=== PATIENT | male | born 1990 | race Caucasian/White ===

== ENCOUNTER → 2021-01-29 16:31 | Outpatient (BNVA) | payer BC, SELFPAY | PROVIDERS: Visit Provider Internal Medicine Gastroenterology ==

== ENCOUNTER 2021-03-13 11:08 | Outpatient (REF) | payer BC, SELFPAY | END 2021-03-13 11:09 | disposition home or self-care (01) | LOC: HO.MDS 11:08 | PROVIDERS: PCP Internal Medicine; Visit Provider Internal Medicine Gastroenterology | DX: K50.90 Crohn's disease, unspecified, without complications (principal) | CPT/HCPCS: 96365; J3380 ==

== ENCOUNTER 2021-03-27 11:29 | Outpatient (REF) | payer BC, SELFPAY | END 2021-03-27 11:30 | disposition home or self-care (01) | LOC: HO.MDS 11:29 | PROVIDERS: PCP Internal Medicine; Visit Provider Internal Medicine Gastroenterology | DX: K50.90 Crohn's disease, unspecified, without complications (principal) | CPT/HCPCS: 96365; J3380 ==

== ENCOUNTER 2021-04-30 10:11 | Outpatient (REF) | payer BC, SELFPAY | END 2021-04-30 10:12 | disposition home or self-care (01) | LOC: HO.MDS 10:11 | PROVIDERS: PCP Internal Medicine; Visit Provider Internal Medicine Gastroenterology | DX: K50.90 Crohn's disease, unspecified, without complications (principal) | CPT/HCPCS: 96365; J3380 ==

== ENCOUNTER 2021-11-06 12:15 | Outpatient (REF) | payer BC, SELFPAY | END 2021-11-06 12:16 | disposition home or self-care (01) | LOC: HO.MDS 12:15 | PROVIDERS: Visit Provider Dentist Pediatric Dentistry | DX: K50.90 Crohn's disease, unspecified, without complications (principal) | CPT/HCPCS: 96413; 96415; J1200; Q5104 ==

== ENCOUNTER 2021-11-19 09:06 | Outpatient (REF) | payer BC, SELFPAY | END 2021-11-19 09:07 | disposition home or self-care (01) | LOC: HO.MDS 09:06 | PROVIDERS: Visit Provider Internal Medicine Gastroenterology | DX: K50.90 Crohn's disease, unspecified, without complications (principal) | CPT/HCPCS: 96413; 96415; J1200; Q5104 ==

== ENCOUNTER 2021-12-31 10:35 | Outpatient (REF) | payer BC, SELFPAY | END 2021-12-31 10:36 | disposition home or self-care (01) | LOC: HO.MDS 10:35 | PROVIDERS: Visit Provider Internal Medicine Gastroenterology | DX: K50.90 Crohn's disease, unspecified, without complications (principal) | CPT/HCPCS: J1745; Q5104 ==

== ENCOUNTER 2022-02-25 10:49 | Outpatient (REF) | payer BC, SELFPAY ==
[2022-02-25 11:52] LABS: MANUAL DIFF FLAG NO
[2022-02-25 11:55] LABS: Basophils Percent Auto 0.4 % (0-2); Eosinophils Absolute Auto 0.1 X10*3/uL (0.0-0.4); Eosinophils Percent Auto 1.2 % (0-4); Hematocrit 45.2 % (42.0-52.0); Imm Gran Abs Auto 0.01 X10*3/uL (0.00-0.03); Imm Gran Pct Auto 0.1 % (0.0-0.4); Lymphocytes Absolute Auto 3.4 X10*3/uL (1.2-4.9); Lymphocytes Percent Auto 44.4 % (20-40); Mean Corpuscular HGB Conc 33.2 g/dl (31.0-36.0); Mean Corpuscular Hemoglobin 29.7 pg (27.0-33.0); Mean Corpuscular Volume 89.5 fL (80.0-98.0); Monocytes Absolute Auto 0.7 X10*3/uL (0.1-1.2); Neutrophils Absolute Auto 3.4 x10*3/uL (2.0-8.3); Neutrophils Percent Auto 44.9 % (45-73); Platelet Count 260 X10*3/uL (160-400); Red Blood Count 5.05 X10*6/uL (4.60-5.80); Red Cell Distribution Width 14.5 % (11.0-16.0); White Blood Count 7.6 X10*3/uL (4.8-10.8)
[2022-02-25 12:08] LABS: C Reactive Protein 0.47 mg/dL (< or = 0.50)
[2022-02-25 12:11] LABS: Alanine Aminotransferase 61 U/L (0-40); Albumin Level 4.1 g/dL (3.5-5.0); Alkaline Phosphatase 49 U/L (39-117); Anion Gap 12 (12-20); Aspartate Amino Transferase 79 U/L (5-37); Bilirubin Total 0.6 mg/dL (0.0-1.0); Blood Urea Nitrogen 11 mg/dL (9-16); Calcium 9.8 mg/dL (8.4-10.2); Carbon Dioxide 27 mmol/L (22-29); Chloride 104 mmol/L (96-108); Estimated Glomerular Filt Rate > 60; Glucose Random 99 mg/dL (60-115); Potassium 4.4 mmol/L (3.3-5.1); Sodium 139 mmol/L (135-145); Total Protein 7.6 g/dL (6.5-8.0)
[2022-02-25 12:31] LABS: Ferritin 35 ng/mL (20-250)
[2022-02-25 12:33] LABS: Erythrocyte Sedimentation Rate 2 MM/HR (0-15)
== END 2022-02-25 10:50 | disposition home or self-care (01) ==
LOC: HO.MDS 10:49
PROVIDERS: Visit Provider Internal Medicine Gastroenterology
DX: K50.90 Crohn's disease, unspecified, without complications (principal)
CPT/HCPCS: 36415; 80053; 80230; 82542; 82728; 85025; 85652; 86140; 96413; 96415; Q5104

== ENCOUNTER → 2023-05-30 13:07 | Outpatient (BNVA) | payer BC, SELFPAY | PROVIDERS: PCP Internal Medicine; Visit Provider Internal Medicine Gastroenterology ==

== ENCOUNTER 2025-08-26 14:48 | Outpatient (REF) | payer BC, SELFPAY ==
[2025-08-26 16:48] LABS: MANUAL DIFF FLAG NO
[2025-08-26 16:56] LABS: Hematocrit 44.5 % (42.0-52.0); Hemoglobin 15.6 g/dl (14.0-18.0); Imm Gran Abs Auto 0.02 X10*3/uL (0.00-0.03); Imm Gran Pct Auto 0.3 % (0.0-0.4); Lymphocytes Absolute Auto 3.5 X10*3/uL (1.2-4.9); Mean Corpuscular HGB Conc 35.1 g/dl (31.0-36.0); Mean Corpuscular Hemoglobin 32.2 pg (27.0-33.0); Mean Corpuscular Volume 91.8 fL (80.0-98.0); NRBC Abs Auto 0.000 X10*3/uL (0.0-0.012); NRBC Pct Auto 0.0 /100WBC (0.0-0.2); Platelet Count 257 X10*3/uL (160-400); Red Blood Count 4.85 X10*6/uL (4.60-5.80); White Blood Count 7.6 X10*3/uL (4.8-10.8)
[2025-08-26 17:13] LABS: Alanine Aminotransferase 31 U/L (0-40); Albumin Level 4.8 g/dL (3.5-5.0); Alkaline Phosphatase 46 U/L (39-117); Anion Gap 14 (12-20); Aspartate Amino Transferase 31 U/L (5-37); Blood Urea Nitrogen 10 mg/dL (9-16); Calcium 9.6 mg/dL (8.4-10.2); Carbon Dioxide 26 mmol/L (22-29); Chloride 107 mmol/L (96-108); Estimated Glomerular Filt Rate > 60; Potassium 3.8 mmol/L (3.3-5.1); Sodium 143 mmol/L (135-145); Total Protein 7.8 g/dL (6.5-8.0)
[2025-08-26 17:29] LABS: Ferritin 158 ng/mL (20-250)
[2025-08-26 17:41] LABS: Folate 10.1 ng/mL (> or = 4.0); Vitamin B12 422 pg/mL (200-900)
== END 2025-08-26 14:49 | disposition home or self-care (01) ==
LOC: HO.LAB 14:48
PROVIDERS: PCP Internal Medicine; Visit Provider Internal Medicine Gastroenterology
DX: K50.90 Crohn's disease, unspecified, without complications (principal); K75.81 Nonalcoholic steatohepatitis (NASH); R19.7 Diarrhea, unspecified
CPT/HCPCS: 36415; 80053; 82180; 82306; 82607; 82728; 82746; 84425; 84590; 84630; 85025

== ENCOUNTER → 2025-08-26 14:48 | Outpatient (AMB) | payer BC, SELFPAY ==
--- NOTE | 2025-08-26 14:54 | MHC.OFFVIS ---
Vital Signs 08/26/25 14:59 Height 5 ft 9 in Weight 171 lb 15.369 oz BMI 25.4 BP 136/82 Blood Pressure Location Lt brachial Position Sitting Intake Visit Reasons: f/u Crohns, not seen since Intake Note: Dandy presents in the office as a Crohns patient. CC: Many concerns - states that he is having some symptoms - at home infusions. States that they are going out. Ric switched to [facility] and sending $0 bills to pay. Is being put on a topical chemo drug and he states that he called but noone from the office got back to him. Was told that it can cause a flare up - it is called imiquimod cream and he starts in a week. 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 Allergies house dust Allergy (Severe, Verified 05/30/23 13:17) Sneezing infliximab-dyyb (From INFLECTRA) Allergy (Intermediate, Unverified 08/14/20 19:47) HIVES PURITIS cefuroxime (From CEFTIN) Allergy (Mild, Unverified 08/14/20 19:47) RASH grass pollen Allergy (Mild, Verified 05/30/23 13:17) Unknown HPI HPI f/u Crohns, not seen since : Details: 34 yr old m with crohns here for f/u RECAP Initially dx with crohns aged 14 been on remicade for many years he had been sick on humira but made him sick reaction to inflectra biosimilar which was severe so switched back to remicade dosed at 10 mg/kg q 6 weeks was due colonoscopy 2019 for further assessment and CRC surveillance prior colonoscopy 2017 with erosion in TI and few rectal polyps also hx of abn LFT with A1At MZ phenotype He was unable to get his remicade at [facility] due to schedule and other issues, he was supposed to get remicade but was 2 months overdue he had noted more apthous ulcers We were able to get him back on remicade with home infusion which was easier for his schedule unfortunately insurance was forcing him to get biosimilar in spite of prior allergic reaction and my strong recommendation to cont w remicade which was working well Due to concerns of allergy swapped to entyvio and given budesonide He was not really doing that well, went to [facility] with flare and found to have colitis on left side I increased entyvio to q4 wk due to sub optimal trough level and put him on apriso for the interim INTERIM: he is on the remicade, biosimilar he has 2 loose bowel movements a day he is on a tetracycline ab for acne no blood in stools appetite fair weight is stable stress due to campaigning he had HPV warts and on imiquimod recently worsening gerd EXAM: GENERAL: The patient is well developed and nontoxic. VITAL SIGNS:see workflow HEENT: Nonicteric sclerae, PERRLA, EOMI. Oropharynx clear. Moist mucous membranes. Conjunctivae appear well perfused. No thyroid mass. CHEST: Chest wall is nontender. HEART: Regular rate and rhythm without murmurs. LUNGS: Clear to auscultation bilaterally. ABDOMEN: Soft, positive bowel sounds, nontender, no organomegaly.no flank tenderness SKIN: No rash, no excessive bruising, petechiae, or purpura. NEUROLOGIC: Cranial nerves II-XII intact without motor/sensory deficit. Psych:nml affect A/P: 1/ Crohns disease in had been in remission with biologic therapy with remicade but due to insurance refusal and insistence on using biosimilar with documented allergy patient was changed to entyvio with suboptimal response, then changed back to remicade generic 10 mg/kg and is overall doing pretty well. Has been having issues with infusions, not always on time due to infusion company and [facility] issues, he is working with them on this. PLAN: 1/ He is overdue colonoscopy for crc screening--will arrange--send suprep and add EGD 2/ he needs up to date labs incl stool testing--ordered 3/ fecal lactoferrin -ordered 4/ cont infliximab q 6 weeks [facility] Surgical History (Updated 08/26/25 @ 15:01 by JEANETTE Schmidt) Hx of colonoscopy History of esophagogastroduodenoscopy (EGD) Hx of tonsillectomy Family History Mother Uterine cancer Father Uterine cancer Skin cancer Maternal Aunt Uterine cancer Social History Alcohol intake: current Alcohol intake frequency: holidays/special occasions only Patient Tobacco Use Status: Never used Tobacco Physical Exam Vital Signs: Last Vital Signs BP 136/82 08/26/25 14:59 BMI result Body Mass Index 25.4 Assessment & Plan Assessment & Plan (1) Crohn's disease in remission: Code(s): K50.90 - Crohn's disease, unspecified, without complications Category: Medical Plan: as above Orders: Orders Comprehensive Met. Panel Today K50.90 - Crohn's disease, unspecified, without complications, K75.81 - Nonalcoholic steatohepatitis (FAYE) C Reactive Protein Today K50.90 - Crohn's disease, unspecified, without complications Ferritin Today K50.90 - Crohn's disease, unspecified, without complications Lactoferrin, Fecal, Quant. Today K50.90 - Crohn's disease, unspecified, without complications, K51.50 - Left sided colitis without complications Vitamin B12 and Folate Today K50.90 - Crohn's disease, unspecified, without complications GI Panel Today K50.90 - Crohn's disease, unspecified, without complications, R19.7 - Diarrhea, unspecified Zinc Today K50.90 - Crohn's disease, unspecified, without complications Vitamin C Today K50.90 - Crohn's disease, unspecified, without complications Complete Blood Count Auto Diff Today K50.90 - Crohn's disease, unspecified, without complications CDiff Gene PCR Today K50.90 - Crohn's disease, unspecified, without complications, R19.7 - Diarrhea, unspecified Vitamin D 25-OH Total Today K50.90 - Crohn's disease, unspecified, without complications Vitamin A Today K50.90 - Crohn's disease, unspecified, without complications Vitamin B1 Today K50.90 - Crohn's disease, unspecified, without complications Referrals GI Procedure Notification K50.90 - Crohn's disease, unspecified, without complications Medications: New sodium,potassium,mag sulfates 17.5-3.13-1.6 gram (Suprep Bowel Prep Kit) DILUTE; drink 1/2 at 6-8 pm and half at 11 PM- 1AM 354 mL 0RF Discontinued sodium,potassium,mag sulfates 17.5-3.13-1.6 gram (Suprep Bowel Prep Kit) Discontinued Reason: Patient Completed Course DILUTE; drink 1/2 at 6-8 pm and half at 11 PM- 1AM 354 mL 0RF Coding Level of Care Code Est Pt Level 4 (88599) Diagnoses Crohn's disease in remission K50.90
[2025-08-26 14:59] VITALS: BP 136/82; BMI 25.4
== END ==
LOC: HO.HGI 14:49
PROVIDERS: PCP Internal Medicine; Visit Provider Internal Medicine Gastroenterology
DX: K50.90 Crohn's disease, unspecified, without complications (principal)
CPT/HCPCS: 99214